=== PATIENT | female | born 1970 | race Caucasian/White ===

== ENCOUNTER 2018-07-25 14:37 | Emergency (ER) | payer BC, MEDICAID ==
[~2018-07-25] VITALS: Ht 167.6 cm; Wt 80.3 kg
[2018-07-25 15:55] LABS: CALCIUM 8.8 mg/dL (8.4-11.0); CREATININE 0.63 mg/dL (0.55-1.30); POTASSIUM 4.8 mmol/L (3.5-5.1)
[2018-07-25 16:01] LABS: ALBUMIN 3.4 g/dL (3.4-4.8); TOTAL BILIRUBIN 0.2 mg/dL (0.0-1.0)
[2018-07-25 16:42] VITALS: BP_SYST 140
== END 2018-07-25 16:42 | disposition home or self-care (01) ==
LOC: SED 14:37
DX: E11.649 Type 2 diabetes mellitus with hypoglycemia without coma (principal); Z98.84 Bariatric surgery status
CPT/HCPCS: 36415; 80053; 99283